=== PATIENT | male | born 1985 | race Caucasian/White ===

== ENCOUNTER 2017-12-11 08:31 | Day surgery (SDC) | payer OTHER ==
[~2017-12-11 08:31] MED LIST: LIDOCAINE HCL 1% MPF 30 SOL ONE; PROPOFOL 500 MG/50 ML EMU IV ONE
[2017-12-11 11:19] VITALS: RESP 20
[2017-12-11 11:34] VITALS: BP 111/74; PULSE 52; TEMP 97.4; O2SAT 100
== END 2017-12-11 12:20 | disposition home or self-care (01) | DRG 392 ==
LOC: SURG 08:31
PROVIDERS: ATTEND Internal Medicine Gastroenterology
DX: K22.8 Other specified diseases of esophagus (principal); I85.10 Secondary esophageal varices without bleeding; Q39.9 Congenital malformation of esophagus, unspecified; K74.60 Unspecified cirrhosis of liver; L53.8 Other specified erythematous conditions; K44.9 Diaphragmatic hernia without obstruction or gangrene
CPT/HCPCS: 99001; J2001; J2704